=== PATIENT | female | born 1965 | race Caucasian/White ===

== ENCOUNTER 2022-01-18 13:21 | Emergency (ER) | payer MEDICARE ==
[2022-01-18] MEDS ORDERED: Sodium Chloride 0.9% 2.5 ML Syringe FLUSH PRN (13:53)
[2022-01-18] MEDS ORDERED: Sodium Chloride 0.9% 10 ML Syringe FLUSH PRN (13:53)
[2022-01-18] MEDS ORDERED: Ondansetron 4 MG/2 ML SDV IVPUSH ONE (13:53)
[2022-01-18] MEDS ORDERED: Sodium Chloride 0.9% 1,000 ML IV ONE (13:53)
[2022-01-18 15:11] LABS: BLOOD UREA NITROGEN,BUN 26 mg/dL (7.0-18.0); CARBON DIOXIDE,CO2 22.3 mmol/L (21.0-32.0); CHLORIDE,CL 100 mmol/L (98-107); GLUCOSE RANDOM 95 mg/dL (74-106); POTASSIUM,K 4.4 mmol/L (3.5-5.1); SODIUM,NA 134 mmol/L (136-145)
[2022-01-18 15:12] LABS: CORONAVIRUS COVID-19 NAA NEGATIVE (NEGATIVE); INFLUENZA A NAA NEGATIVE (NEGATIVE); INFLUENZA B NAA NEGATIVE (NEGATIVE)
[2022-01-18] MEDS ORDERED: oxyCODONE 5 MG Tab PO ONE (15:23)
== END 2022-01-18 16:20 | disposition home or self-care (01) ==
LOC: MW.ED 13:21
DX: M54.2 Cervicalgia (principal); R42 Dizziness and giddiness; I10 Essential (primary) hypertension; J32.0 Chronic maxillary sinusitis; J32.2 Chronic ethmoidal sinusitis; Z20.822 Contact with and (suspected) exposure to COVID-19; Z88.0 Allergy status to penicillin; Z88.5 Allergy status to narcotic agent; Z88.2 Allergy status to sulfonamides; W08.XXXA Fall from other furniture, initial encounter; Y93.84 Activity, sleeping; Y92.091 Bathroom in other non-institutional residence as the place of occurrence of the external cause
CPT/HCPCS: 0240U; 36415; 70450; 71045; 72125; 80053; 83735; 84484; 85025; 96374; 99284; A9270; J2405; J7030; 93010; 99285

== ENCOUNTER 2022-03-13 10:40 | Emergency (ER) | payer MEDICARE, MEDICAID ==
[2022-03-13] MEDS ORDERED: Sodium Chloride 0.9% 10 ML Syringe FLUSH PRN (11:16)
[2022-03-13] MEDS ORDERED: Sodium Chloride 0.9% 2.5 ML Syringe FLUSH PRN (11:16)
[2022-03-13] MEDS ORDERED: Sodium Chloride 0.9% 1,000 ML IV ONE (11:36)
[2022-03-13] MEDS ORDERED: Ketorolac 30 MG/ML SDV IVPUSH ONE (11:36)
[2022-03-13] MEDS ORDERED: HYDROmorphone 1 MG/ML Syringe IVPUSH ONE (11:36)
[2022-03-13] MEDS ORDERED: Ondansetron 4 MG/2 ML SDV IVPUSH ONE (11:36)
[2022-03-13 13:16] LABS: BLOOD UREA NITROGEN,BUN 10 mg/dL (7.0-18.0); CARBON DIOXIDE,CO2 20.8 mmol/L (21.0-32.0); CHLORIDE,CL 106 mmol/L (98-107); GLUCOSE RANDOM 93 mg/dL (74-106); LIPASE 131 U/L (73-393); SODIUM,NA 139 mmol/L (136-145)
[2022-03-13] MEDS ORDERED: Iopamidol 755 MG/ML 500 ML Multipack Bottle IVPUSH STA (14:48)
== END 2022-03-13 16:13 | disposition home or self-care (01) ==
LOC: MW.ED 10:40
DX: R10.9 Unspecified abdominal pain (principal); J44.9 Chronic obstructive pulmonary disease, unspecified; E03.9 Hypothyroidism, unspecified; I10 Essential (primary) hypertension; Z87.891 Personal history of nicotine dependence; Z86.16 Personal history of COVID-19; Z86.73 Personal history of transient ischemic attack (TIA), and cerebral infarction without residual deficits; Z79.899 Other long term (current) drug therapy; Z88.5 Allergy status to narcotic agent; Z88.0 Allergy status to penicillin; Z88.2 Allergy status to sulfonamides; Z88.6 Allergy status to analgesic agent
CPT/HCPCS: 36415; 74176; 80053; 81003; 83690; 85025; 96374; 96375; 99284; J1170; J1885; J2405; J3490; J7030; 74177

== ENCOUNTER 2022-04-10 22:27 | Emergency (ER) | payer MEDICARE, MEDICAID, OTHER ==
[2022-04-10] MEDS ORDERED: diphenhydrAMINE 50 MG/ML SDV IVPUSH ONE (22:59)
[2022-04-10 23:22] LABS: CARBON DIOXIDE,CO2 31.8 mmol/L (21.0-32.0); POTASSIUM,K 3.1 mmol/L (3.5-5.1)
[2022-04-10] MEDS ORDERED: Potassium Chloride 10% 20 MEQ/15 ML Soln 30 ML UD Cup PO ONE (23:24)
== END 2022-04-11 01:40 | disposition home or self-care (01) ==
LOC: MW.ED 22:27
DX: G24.9 Dystonia, unspecified (principal); I10 Essential (primary) hypertension; J44.9 Chronic obstructive pulmonary disease, unspecified; F31.9 Bipolar disorder, unspecified; E03.9 Hypothyroidism, unspecified; Z86.73 Personal history of transient ischemic attack (TIA), and cerebral infarction without residual deficits; Z79.899 Other long term (current) drug therapy
CPT/HCPCS: 36415; 71045; 80048; 83735; 84484; 85025; 93005; 96374; 99285; A9270; J1200; 93010; 99284

== ENCOUNTER 2022-04-23 10:21 | Day surgery (SDC) | payer MEDICARE, MEDICAID ==
[~2022-04-23 10:21] MED LIST: Lactated Ringers 1,000 ML IV SCH
[2022-04-23] MEDS ORDERED: Ondansetron 4 MG/2 ML SDV ONE (11:17)
[2022-04-23] MEDS ORDERED: fentaNYL 100 MCG/2 ML SDV ONE (11:17)
[2022-04-23] MEDS ORDERED: Propofol 200 MG/20 ML SDV ONE ×2 (11:17→12:25)
[2022-04-23] MEDS ORDERED: Lidocaine 2% 5 ML SDV ONE (11:18)
[2022-04-23] MEDS ORDERED: Glycopyrrolate 0.2 MG/ML SDV ONE (11:40)
[2022-04-23] MEDS ORDERED: Albuterol 8 GM Inhaler ONE (13:16)
== END 2022-04-23 13:15 | disposition home or self-care (01) ==
LOC: MW.SDS 10:21
PROVIDERS: ATTEND Surgery
DX: D12.6 Benign neoplasm of colon, unspecified (principal); K29.70 Gastritis, unspecified, without bleeding; K64.8 Other hemorrhoids; J44.9 Chronic obstructive pulmonary disease, unspecified; G47.30 Sleep apnea, unspecified; F41.9 Anxiety disorder, unspecified; E03.9 Hypothyroidism, unspecified; F32.A Depression, unspecified; I10 Essential (primary) hypertension; Z88.5 Allergy status to narcotic agent; Z88.8 Allergy status to other drugs, medicaments and biological substances; Z86.73 Personal history of transient ischemic attack (TIA), and cerebral infarction without residual deficits; Z88.0 Allergy status to penicillin; Z88.2 Allergy status to sulfonamides; Z79.899 Other long term (current) drug therapy; Z90.49 Acquired absence of other specified parts of digestive tract; Z98.890 Other specified postprocedural states; Z87.891 Personal history of nicotine dependence; Z79.890 Hormone replacement therapy; Z98.84 Bariatric surgery status
CPT/HCPCS: 43239; 45385; A9270; J2405; J2704; J3010; J3490; J7120; 00813

== ENCOUNTER 2022-06-19 14:41 | Emergency (ER) | payer MEDICARE, MEDICAID, OTHER ==
[2022-06-19] MEDS ORDERED: Sodium Chloride 0.9% 1,000 ML IV ONE (15:24)
[2022-06-19] MEDS ORDERED: Ondansetron 4 MG/2 ML SDV IVPUSH ONE (15:24)
[2022-06-19] MEDS ORDERED: Sodium Chloride 0.9% 2.5 ML Syringe FLUSH PRN (15:24)
[2022-06-19] MEDS ORDERED: Sodium Chloride 0.9% 10 ML Syringe FLUSH PRN (15:24)
[2022-06-19] MEDS ORDERED: Naloxone 0.4 MG/ML SDV IVPUSH ONE ×2 (15:25→18:48)
[2022-06-19 16:22] LABS: POTASSIUM,K 3.2 mmol/L (3.5-5.1)
[2022-06-19] MEDS ORDERED: Albuterol/Ipratropium 3.0-0.5 MG/3 ML Neb Soln NEB ONE (18:47)
[2022-06-19] MEDS ORDERED: Azithromycin 250 MG Tab PO ONE (18:49)
[2022-06-19] MEDS ORDERED: predniSONE 10 MG Tab PO ONE (18:50)
== END 2022-06-19 21:23 | disposition home or self-care (01) ==
LOC: MW.ED 14:41
DX: T40.2X1A Poisoning by other opioids, accidental (unintentional), initial encounter (principal); F10.129 Alcohol abuse with intoxication, unspecified; F11.90 Opioid use, unspecified, uncomplicated; R41.82 Altered mental status, unspecified; J44.9 Chronic obstructive pulmonary disease, unspecified; I10 Essential (primary) hypertension; E03.9 Hypothyroidism, unspecified; Z86.73 Personal history of transient ischemic attack (TIA), and cerebral infarction without residual deficits; Z79.899 Other long term (current) drug therapy
CPT/HCPCS: 36415; 71045; 80053; 80305; 80307; 81003; 83735; 84484; 85025; 93005; 96361; 96374; 96375; 96376; 99283; A9270; J2310; J2405; J3490; J7030; U0002; 93010; 99284; J7620-GY

== ENCOUNTER 2022-11-30 12:44 | Emergency (ER) | payer MEDICARE, MEDICAID ==
[2022-11-30] MEDS ORDERED: LORazepam 1 MG Tab PO ONE (13:21)
[2022-11-30 14:04] LABS: CARBON DIOXIDE,CO2 31.2 mmol/L (21.0-32.0); POTASSIUM,K 2.9 mmol/L (3.5-5.1)
[2022-11-30] MEDS ORDERED: Potassium Chloride 20 MEQ Packet PO ONE (14:10)
[2022-11-30] MEDS ORDERED: Potassium Chloride 20 MEQ Tab.ER PO ONE (14:18)
== END 2022-11-30 17:00 | disposition home or self-care (01) ==
LOC: MW.ED 12:44
DX: R07.89 Other chest pain (principal); R20.2 Paresthesia of skin; F41.9 Anxiety disorder, unspecified; E87.6 Hypokalemia; I10 Essential (primary) hypertension; J44.9 Chronic obstructive pulmonary disease, unspecified; K21.9 Gastro-esophageal reflux disease without esophagitis; Z79.899 Other long term (current) drug therapy
CPT/HCPCS: 36415; 71045; 80053; 84484; 85025; 93005; 99285; A9270; 93010; 99283

== ENCOUNTER 2023-03-03 14:13 | Emergency (ER) | payer MEDICARE, MEDICAID ==
[2023-03-03] MEDS ORDERED: Sodium Chloride 0.9% 10 ML Syringe FLUSH PRN (14:22)
[2023-03-03] MEDS ORDERED: Sodium Chloride 0.9% 2.5 ML Syringe FLUSH PRN (14:22)
[2023-03-03] MEDS ORDERED: Albuterol/Ipratropium 3.0-0.5 MG/3 ML Neb Soln NEB STA (14:23)
[2023-03-03] MEDS ORDERED: methylPREDNISolone Sodium Succinate 125 MG/2 ML SDV IVPUSH STA (14:38)
[2023-03-03] MEDS ORDERED: LORazepam 2 MG/ML SDV IVPUSH STA ×2 (14:38→21:52)
[2023-03-03] MEDS: Levofloxacin 500 MG Tab PO STA ×2 (15:20→16:08)
[2023-03-03 15:21] LABS: CORONAVIRUS COVID-19 NAA NEGATIVE (NEGATIVE); INFLUENZA A NAA NEGATIVE (NEGATIVE); INFLUENZA B NAA NEGATIVE (NEGATIVE)
[2023-03-03] MEDS ORDERED: Ondansetron 4 MG/2 ML SDV IVPUSH STA (15:22)
[2023-03-03 15:25] LABS: BASOPHILS PERCENT AUTO 0.3 % (0.0-1.5); EOSINOPHILS ABSOLUTE AUTO 0.4 K/uL (0.0-0.7); EOSINOPHILS PERCENT AUTO 2.9 % (0.0-7.0); HEMATOCRIT 44.1 % (36.0-46.0); HEMOGLOBIN 14.9 g/dL (12.0-16.0); LYMPHOCYTES ABSOLUTE AUTO 3.7 K/uL (0.6-2.4); LYMPHOCYTES PERCENT AUTO 26.7 % (16.0-40.0); MEAN CORPUSCULAR HEMOGLOBIN 31.7 pg (27.0-32.0); MEAN CORPUSCULAR HGB CONC 33.8 g/dL (31.0-37.0); MEAN CORPUSCULAR VOLUME 93.8 fL (80.0-98.0); MONOCYTES ABSOLUTE AUTO 1.3 K/uL (0.0-0.8); MONOCYTES PERCENT AUTO 9.3 % (0.0-15.0); NEUTROPHILS ABSOLUTE AUTO 8.3 K/uL (1.4-5.7); NEUTROPHILS PERCENT AUTO 60.8 % (48.0-80.0); PLATELET COUNT,PLT 282 K/uL (150-400); WHITE BLOOD CELL COUNT,WBC 13.73 K/uL (4.0-11.0)
[2023-03-03] MEDS ORDERED: Levofloxacin/Dextrose 5%-Water 500 MG in Premix Bag 1 BAG IV STA (15:43)
[2023-03-03 15:50] LABS: A/G RATIO 0.5 (0.9-1.6); ALBUMIN 2.5 g/dL (3.4-5.0); BILIRUBIN TOTAL 0.7 mg/dL (0.2-1.0); CALCIUM 8.9 mg/dL (8.5-10.1); CARBON DIOXIDE,CO2 30.3 mmol/L (21.0-32.0); CREATININE 0.9 mg/dL (0.6-1.0); EST CRCL DRUG DOSING (CG) 62.8 mL/min; POTASSIUM,K 2.6 mmol/L (3.5-5.1); PROTEIN TOTAL,TP 7.2 g/dL (6.4-8.2)
[2023-03-03 15:55] LABS: COLOR,URINE YELLOW; GLUCOSE,URINE NEGATIVE (NEGATIVE); KETONES,URINE TRACE mg/dL (NEGATIVE); LEUKOCYTE ESTERASE,URINE TRACE (NEGATIVE); NITRITE,URINE NEGATIVE (NEGATIVE); OCCULT BLOOD,URINE TRACE-INTACT (NEGATIVE); PROTEIN,URINE TRACE mg/dL (NEGATIVE); UROBILINOGEN,URINE 0.2 EU/dL (<2.0)
[2023-03-03] MEDS ORDERED: Sodium Chloride 0.9% 500 ML IV ONE (16:15)
[2023-03-03 16:31] LABS: APPEARANCE,URINE HAZY; BILIRUBIN,URINE SMALL (NEGATIVE)
[2023-03-03 16:32] LABS: BACTERIA,URINE FEW (NEGATIVE); CALCIUM OXALATE CRYSTALS,URINE RARE (NEGATIVE); EPITHELIAL CELLS,URINE MODERATE (NONE-FEW); RBC,URINE 0-2 (0-2/HPF); WBC,URINE 0-3 (0-5/HPF)
[2023-03-03 16:33] LABS: MUCUS,URINE HEAVY (NONE-MOD)
[2023-03-03] MEDS ORDERED: Sodium Chloride 0.9% 1,000 ML IV STA (16:33)
[2023-03-03] MEDS: Potassium Chloride 100 ML IV SCH ×2 (16:33→19:00)
[2023-03-03] MEDS ORDERED: Iopamidol 755 MG/ML 500 ML Multipack Bottle IVPUSH ONE (16:37)
== END 2023-03-03 23:55 | disposition critical access hospital (66) ==
LOC: MW.ED 14:13
DX: J18.9 Pneumonia, unspecified organism (principal); J44.9 Chronic obstructive pulmonary disease, unspecified; E87.6 Hypokalemia; I10 Essential (primary) hypertension; K21.9 Gastro-esophageal reflux disease without esophagitis; E03.9 Hypothyroidism, unspecified; Z86.73 Personal history of transient ischemic attack (TIA), and cerebral infarction without residual deficits; Z88.5 Allergy status to narcotic agent; Z88.0 Allergy status to penicillin; Z88.2 Allergy status to sulfonamides; Z88.8 Allergy status to other drugs, medicaments and biological substances; Z79.899 Other long term (current) drug therapy; Z87.891 Personal history of nicotine dependence; Z20.822 Contact with and (suspected) exposure to COVID-19; Z98.84 Bariatric surgery status
CPT/HCPCS: 0240U; 36415; 71045; 74177; 80053; 81001; 83605; 83735; 84484; 85025; 87040; 87086; 87899; 93005; 96365; 96368; 96375; 99285; J1956; J2060; J2405; J2930; J3480; J3490; J7040; Q9967; 87070; 87205; 93010; A9270-GY; J7620-GY

== ENCOUNTER 2023-08-08 13:48 | Inpatient (IN) | payer MEDICAID, MEDICARE ==
[2023-08-08] MEDS ORDERED: HYDROmorphone 1 MG/ML Syringe IVPUSH ONE (14:29)
[2023-08-08] MEDS ORDERED: Albuterol/Ipratropium 3.0-0.5 MG/3 ML Neb Soln NEB ONE (14:29)
[2023-08-08] MEDS ORDERED: Furosemide 40 MG/4 ML VIAL IVPUSH ONE (14:30)
[2023-08-08 15:14] LABS: PCO2 VENOUS 55 mmHG (41-51); PH,VENOUS 7.31 (7.31-7.41); PO2 VENOUS < 30 mmHG
[2023-08-08 15:15] LABS: BASE EXCESS VENOUS 0.6 (-2.0-3.0); BICARBONATE,VENOUS 28 mEq/L (23-28)
[2023-08-08 15:26] LABS: BASOPHILS PERCENT AUTO 0.5 % (0.0-1.0); EOSINOPHILS PERCENT AUTO 11.5 % (0.0-6.0); HEMOGLOBIN 12.8 g/dL (12.0-16.0); IMMATURE GRAN PERCENT AUTO 0.2 % (0.0-0.4); LYMPHOCYTES PERCENT AUTO 28.2 % (24.0-44.0); MEAN CORPUSCULAR HEMOGLOBIN 29.6 pg (28.0-32.0); MEAN CORPUSCULAR HGB CONC 33.7 g/dL (32.0-36.0); MEAN PLATELET VOLUME 10.5 fL (9.4-12.3); MONOCYTES PERCENT AUTO 10.8 % (0.0-8.0); NEUTROPHILS PERCENT AUTO 48.8 % (41.0-71.0); PLATELET COUNT,PLT 217 K/uL (150-400); RED BLOOD CELL COUNT 4.32 M/uL (4.10-5.30); WHITE BLOOD CELL COUNT,WBC 5.46 K/uL (3.9-11.3)
[2023-08-08 15:27] LABS: BASOPHILS ABSOLUTE AUTO 0.03 K/uL (0.00-0.20); EOSINOPHILS ABSOLUTE AUTO 0.63 K/uL (0.00-0.45); IMMATURE GRAN ABSOLUTE AUTO 0.01 K/uL (0.00-0.05); LYMPHOCYTES ABSOLUTE AUTO 1.54 K/uL (1.00-4.80); MONOCYTES ABSOLUTE AUTO 0.59 K/uL (0.00-0.80); NEUTROPHILS ABSOLUTE AUTO 2.66 K/uL (1.80-7.70)
[2023-08-08 15:32] LABS: HEMOGLOBIN A1C 6.1 %
[2023-08-08 15:43] LABS: A/G RATIO 0.7 (0.9-1.6); ALBUMIN 2.8 g/dL (3.4-5.0); BILIRUBIN TOTAL 0.6 mg/dL (0.2-1.0); CALCIUM 8.5 mg/dL (8.5-10.1); CREATININE 1.1 mg/dL (0.6-1.0); EST CRCL DRUG DOSING (CG) 51.39 mL/min; PROTEIN TOTAL,TP 6.8 g/dL (6.4-8.2)
[2023-08-08] MEDS ORDERED: diphenhydrAMINE 50 MG/ML SDV IVPUSH ONE (15:45)
[2023-08-08] MEDS ORDERED: methylPREDNISolone Sodium Succinate 125 MG/2 ML SDV IVPUSH ONE (16:05)
[2023-08-08] MEDS ORDERED: Azithromycin 500 MG in Sodium Chloride 0.9% 250 ML IV ONE (16:24)
[2023-08-08] MEDS ORDERED: cefTRIAXone 1 GM in Sodium Chloride 0.9% 50 ML IV ONE (16:24)
[2023-08-08] MEDS ORDERED: Albuterol/Ipratropium 3.0-0.5 MG/3 ML Neb Soln NEB PRN (17:06)
[2023-08-08] MEDS ORDERED: Ondansetron 4 MG/2 ML SDV IVPUSH PRN (17:06)
[2023-08-08] MEDS: Albuterol/Ipratropium 3.0-0.5 MG/3 ML Neb Soln NEB SCH ×2 (19:00→21:51)
[2023-08-08] MEDS: Pantoprazole 40 MG in Sodium Chloride 0.9% 10 ML IVPUSH SCH (20:46)
[2023-08-08] MEDS: Enoxaparin 40 MG/0.4 ML Syringe SUBCUT SCH (20:47)
[2023-08-08] MEDS: Acetaminophen/oxyCODONE 325-5 MG Tab PO PRN (20:48)
[2023-08-08] MEDS: DOXEPIN 75 MG PO SCH (21:50)
[2023-08-08 22:32] LABS: APPEARANCE,URINE CLEAR; BILIRUBIN,URINE NEGATIVE (NEGATIVE); COLOR,URINE YELLOW; GLUCOSE,URINE NEGATIVE (NEGATIVE); KETONES,URINE NEGATIVE (NEGATIVE); LEUKOCYTE ESTERASE,URINE NEGATIVE (NEGATIVE); NITRITE,URINE NEGATIVE (NEGATIVE); OCCULT BLOOD,URINE NEGATIVE (NEGATIVE); PH,URINE 6.5 (5.0-8.0); PROTEIN,URINE NEGATIVE (NEGATIVE); UROBILINOGEN,URINE 0.2 EU/dL (<2.0)
[2023-08-09 06:17] LABS: HEMATOCRIT 40.1 % (37.0-47.0); HEMOGLOBIN 13.7 g/dL (12.0-16.0); IMMATURE GRAN ABSOLUTE AUTO 0.01 K/uL (0.00-0.05); IMMATURE GRAN PERCENT AUTO 0.2 % (0.0-0.4); LYMPHOCYTES ABSOLUTE AUTO 1.23 K/uL (1.00-4.80); LYMPHOCYTES PERCENT AUTO 21.1 % (24.0-44.0); MEAN CORPUSCULAR HEMOGLOBIN 29.8 pg (28.0-32.0); MEAN CORPUSCULAR HGB CONC 34.2 g/dL (32.0-36.0); MEAN CORPUSCULAR VOLUME 87.4 fL (83.0-99.0); MEAN PLATELET VOLUME 10.5 fL (9.4-12.3); MONOCYTES PERCENT AUTO 1.7 % (0.0-8.0); NEUTROPHILS ABSOLUTE AUTO 4.48 K/uL (1.80-7.70); PLATELET COUNT,PLT 232 K/uL (150-400); RED BLOOD CELL COUNT 4.59 M/uL (4.10-5.30); WHITE BLOOD CELL COUNT,WBC 5.82 K/uL (3.9-11.3)
[2023-08-09] MEDS: Levothyroxine 50 MCG Tab PO SCH (06:38)
[2023-08-09] MEDS: Omeprazole 20 MG Cap.CR PO SCH (06:38)
[2023-08-09 07:09] LABS: A/G RATIO 0.6 (0.9-1.6); ALBUMIN 2.9 g/dL (3.4-5.0); BILIRUBIN TOTAL 0.3 mg/dL (0.2-1.0); CALCIUM 8.8 mg/dL (8.5-10.1); CARBON DIOXIDE,CO2 23.3 mmol/L (21.0-32.0); CREATININE 1.1 mg/dL (0.6-1.0); EST CRCL DRUG DOSING (CG) 51.39 mL/min; POTASSIUM,K 3.4 mmol/L (3.5-5.1); PROTEIN TOTAL,TP 7.5 g/dL (6.4-8.2)
[2023-08-09] MEDS: Losartan 50 MG Tab PO SCH (09:30)
[2023-08-09] MEDS: Pantoprazole 40 MG in Sodium Chloride 0.9% 10 ML IVPUSH SCH ×2 (09:30→20:41)
[2023-08-09] MEDS ORDERED: Potassium Chloride 20 MEQ Tab.ER PO ONE (09:30)
[2023-08-09] MEDS: Furosemide 20 MG/2 ML VIAL IVPUSH SCH (09:30)
[2023-08-09] MEDS: Topiramate 50 MG Tab PO SCH (10:50)
[2023-08-09] MEDS: methylPREDNISolone Sodium Succinate 40 MG/1 ML SDV IVPUSH SCH ×2 (10:50→21:08)
[2023-08-09] MEDS: Acetaminophen/oxyCODONE 325-5 MG Tab PO PRN ×3 (10:51→23:14)
[2023-08-09] MEDS: FORMOTEROL INH SCH ×2 (10:53→20:37)
[2023-08-09] MEDS: BUDESONIDE INH SCH ×2 (10:53→20:37)
[2023-08-09] MEDS ORDERED: cefTRIAXone 1 GM in Sodium Chloride 0.9% 50 ML IV SCH (16:00)
[2023-08-09] MEDS ORDERED: Potassium Chloride 10% 20 MEQ/15 ML Soln 15 ML UD Cup PO ONE (17:58)
[2023-08-09] MEDS ORDERED: Azithromycin 500 MG in Sodium Chloride 0.9% 250 ML IV SCH (18:00)
[2023-08-09] MEDS: Enoxaparin 40 MG/0.4 ML Syringe SUBCUT SCH (20:41)
[2023-08-09] MEDS: DOXEPIN 75 MG PO SCH (20:42)
[2023-08-10 05:50] LABS: BASOPHILS ABSOLUTE AUTO 0.01 K/uL (0.00-0.20); BASOPHILS PERCENT AUTO 0.1 % (0.0-1.0); EOSINOPHILS ABSOLUTE AUTO 0.01 K/uL (0.00-0.45); EOSINOPHILS PERCENT AUTO 0.1 % (0.0-6.0); HEMATOCRIT 41.7 % (37.0-47.0); HEMOGLOBIN 13.8 g/dL (12.0-16.0); IMMATURE GRAN ABSOLUTE AUTO 0.04 K/uL (0.00-0.05); IMMATURE GRAN PERCENT AUTO 0.3 % (0.0-0.4); LYMPHOCYTES PERCENT AUTO 22.3 % (24.0-44.0); MEAN CORPUSCULAR HEMOGLOBIN 29.5 pg (28.0-32.0); MEAN CORPUSCULAR HGB CONC 33.1 g/dL (32.0-36.0); MEAN CORPUSCULAR VOLUME 89.1 fL (83.0-99.0); MEAN PLATELET VOLUME 10.7 fL (9.4-12.3); MONOCYTES ABSOLUTE AUTO 0.96 K/uL (0.00-0.80); MONOCYTES PERCENT AUTO 7.6 % (0.0-8.0); NEUTROPHILS ABSOLUTE AUTO 8.74 K/uL (1.80-7.70); NEUTROPHILS PERCENT AUTO 69.6 % (41.0-71.0); PLATELET COUNT,PLT 259 K/uL (150-400); RED BLOOD CELL COUNT 4.68 M/uL (4.10-5.30); WHITE BLOOD CELL COUNT,WBC 12.56 K/uL (3.9-11.3)
[2023-08-10 06:28] LABS: A/G RATIO 0.7 (0.9-1.6); ALBUMIN 2.8 g/dL (3.4-5.0); BILIRUBIN TOTAL 0.3 mg/dL (0.2-1.0); CALCIUM 8.6 mg/dL (8.5-10.1); CARBON DIOXIDE,CO2 23.7 mmol/L (21.0-32.0); CREATININE 0.8 mg/dL (0.6-1.0); EST CRCL DRUG DOSING (CG) 70.66 mL/min; POTASSIUM,K 4.1 mmol/L (3.5-5.1)
[2023-08-10] MEDS: Acetaminophen/oxyCODONE 325-5 MG Tab PO PRN (06:37)
[2023-08-10] MEDS: Levothyroxine 50 MCG Tab PO SCH (06:37)
[2023-08-10] MEDS: Omeprazole 20 MG Cap.CR PO SCH (06:37)
[2023-08-10] MEDS: Pantoprazole 40 MG in Sodium Chloride 0.9% 10 ML IVPUSH SCH (08:17)
[2023-08-10] MEDS: Losartan 50 MG Tab PO SCH (08:18)
[2023-08-10] MEDS: Furosemide 20 MG/2 ML VIAL IVPUSH SCH (08:18)
[2023-08-10] MEDS: Topiramate 50 MG Tab PO SCH (08:18)
[2023-08-10] MEDS ORDERED: Formoterol/Mometasone 200-5 MCG 8.8 GM Inhaler INH SCH (09:00)
[2023-08-10] MEDS: methylPREDNISolone Sodium Succinate 40 MG/1 ML SDV IVPUSH SCH (09:50)
[2023-08-10] MEDS ORDERED: Meclizine 25 MG Tab PO ONE (10:09)
== END 2023-08-10 13:00 | disposition home or self-care (01) | DRG 189 ==
LOC: MW.ED 13:48 → MW.MS 16:24
PROVIDERS: ADMIT Family Medicine; ATTEND Family Medicine
DX: J96.01 Acute respiratory failure with hypoxia (principal); J44.1 Chronic obstructive pulmonary disease with (acute) exacerbation; F10.11 Alcohol abuse, in remission; F11.90 Opioid use, unspecified, uncomplicated; R06.02 Shortness of breath; G47.30 Sleep apnea, unspecified; K59.09 Other constipation; E87.70 Fluid overload, unspecified; M19.90 Unspecified osteoarthritis, unspecified site; F41.9 Anxiety disorder, unspecified; F32.A Depression, unspecified; J44.9 Chronic obstructive pulmonary disease, unspecified; M54.9 Dorsalgia, unspecified; Z88.8 Allergy status to other drugs, medicaments and biological substances; Z88.5 Allergy status to narcotic agent; Z88.0 Allergy status to penicillin; Z88.2 Allergy status to sulfonamides; I10 Essential (primary) hypertension; Z87.442 Personal history of urinary calculi; E03.9 Hypothyroidism, unspecified; Z98.49 Cataract extraction status, unspecified eye; Z98.1 Arthrodesis status; Z90.49 Acquired absence of other specified parts of digestive tract; Z98.84 Bariatric surgery status; Z98.890 Other specified postprocedural states; K21.9 Gastro-esophageal reflux disease without esophagitis; F31.9 Bipolar disorder, unspecified; F12.10 Cannabis abuse, uncomplicated; Z99.81 Dependence on supplemental oxygen; Z79.899 Other long term (current) drug therapy; Z86.73 Personal history of transient ischemic attack (TIA), and cerebral infarction without residual deficits; Z87.891 Personal history of nicotine dependence
CPT/HCPCS: 36415; 71045; 80053; 82803; 83036; 83735; 83880; 84484; 85025; 93005; 96374; 96375; 99285; J1170; J1200; J1940; J2930; 81003; 93010; 93306; 97161-GP; A9270-GY; C9113; J0456; J0696; J1650; J2920; J3490; J7050; J7620-GY

== ENCOUNTER 2023-09-04 09:23 | Emergency (ER) | payer MEDICARE ==
[2023-09-04] MEDS ORDERED: Albuterol/Ipratropium 3.0-0.5 MG/3 ML Neb Soln NEB ONE (09:43)
[2023-09-04] MEDS ORDERED: methylPREDNISolone Sodium Succinate 125 MG/2 ML SDV IVPUSH ONE (09:43)
[2023-09-04 10:03] LABS: BASE EXCESS VENOUS -2.5 (-2.0-3.0); PH,VENOUS 7.36 (7.31-7.41)
[2023-09-04 10:04] LABS: BASOPHILS ABSOLUTE AUTO 0.02 K/uL (0.00-0.20); BASOPHILS PERCENT AUTO 0.4 % (0.0-1.0); EOSINOPHILS ABSOLUTE AUTO 0.33 K/uL (0.00-0.45); EOSINOPHILS PERCENT AUTO 6.4 % (0.0-6.0); HEMOGLOBIN 15.8 g/dL (12.0-16.0); IMMATURE GRAN ABSOLUTE AUTO 0.01 K/uL (0.00-0.05); IMMATURE GRAN PERCENT AUTO 0.2 % (0.0-0.4); LYMPHOCYTES ABSOLUTE AUTO 2.73 K/uL (1.00-4.80); LYMPHOCYTES PERCENT AUTO 52.9 % (24.0-44.0); MEAN CORPUSCULAR HEMOGLOBIN 30.1 pg (28.0-32.0); MEAN CORPUSCULAR HGB CONC 34.3 g/dL (32.0-36.0); MEAN CORPUSCULAR VOLUME 87.6 fL (83.0-99.0); MEAN PLATELET VOLUME 10.9 fL (9.4-12.3); MONOCYTES ABSOLUTE AUTO 0.61 K/uL (0.00-0.80); MONOCYTES PERCENT AUTO 11.8 % (0.0-8.0); NEUTROPHILS ABSOLUTE AUTO 1.46 K/uL (1.80-7.70); NEUTROPHILS PERCENT AUTO 28.3 % (41.0-71.0); PLATELET COUNT,PLT 230 K/uL (150-400); RED BLOOD CELL COUNT 5.25 M/uL (4.10-5.30); WHITE BLOOD CELL COUNT,WBC 5.16 K/uL (3.9-11.3)
[2023-09-04 10:32] LABS: A/G RATIO 0.7 (0.9-1.6); ALBUMIN 3.2 g/dL (3.4-5.0); BILIRUBIN TOTAL 0.5 mg/dL (0.2-1.0); C-REACTIVE PROTEIN 1.25 mg/dL (<0.3); CALCIUM 8.9 mg/dL (8.5-10.1); CARBON DIOXIDE,CO2 23.9 mmol/L (21.0-32.0); EST CRCL DRUG DOSING (CG) 54.24 mL/min; MAGNESIUM 1.9 mg/dL (1.8-2.4); POTASSIUM,K 4.3 mmol/L (3.5-5.1); PROTEIN TOTAL,TP 7.7 g/dL (6.4-8.2)
[2023-09-04 10:42] LABS: CORONAVIRUS COVID-19 NAA NEGATIVE (NEGATIVE); INFLUENZA A NAA NEGATIVE (NEGATIVE); INFLUENZA B NAA NEGATIVE (NEGATIVE)
== END 2023-09-04 11:59 | disposition home or self-care (01) ==
LOC: MW.ED 09:23
DX: J44.1 Chronic obstructive pulmonary disease with (acute) exacerbation (principal); I10 Essential (primary) hypertension; K21.9 Gastro-esophageal reflux disease without esophagitis; E03.9 Hypothyroidism, unspecified; Z88.5 Allergy status to narcotic agent; Z88.0 Allergy status to penicillin; Z88.2 Allergy status to sulfonamides; Z88.8 Allergy status to other drugs, medicaments and biological substances; Z79.899 Other long term (current) drug therapy; Z20.822 Contact with and (suspected) exposure to COVID-19
CPT/HCPCS: 0240U; 36415; 71045; 80053; 82803; 83735; 83880; 84484; 85025; 86140; 93005; 96374; 99285; J2930; 93010; 99284; J7620-GY

== ENCOUNTER 2023-11-09 18:10 | Inpatient (IN) | payer MEDICARE, MEDICAID ==
[2023-11-09] MEDS ORDERED: Albuterol/Ipratropium 3.0-0.5 MG/3 ML Neb Soln NEB ONE (18:21)
[2023-11-09] MEDS ORDERED: methylPREDNISolone Sodium Succinate 125 MG/2 ML SDV IVPUSH ONE (18:21)
[2023-11-09 18:45] LABS: BASE EXCESS VENOUS -2.1 (-2.0-3.0); PH,VENOUS 7.38 (7.31-7.41)
[2023-11-09 18:55] LABS: BASOPHILS ABSOLUTE AUTO 0.03 K/uL (0.00-0.20); BASOPHILS PERCENT AUTO 0.3 % (0.0-1.0); EOSINOPHILS ABSOLUTE AUTO 0.27 K/uL (0.00-0.45); EOSINOPHILS PERCENT AUTO 2.9 % (0.0-6.0); HEMATOCRIT 42.7 % (37.0-47.0); HEMOGLOBIN 14.6 g/dL (12.0-16.0); IMMATURE GRAN ABSOLUTE AUTO 0.02 K/uL (0.00-0.05); IMMATURE GRAN PERCENT AUTO 0.2 % (0.0-0.4); LYMPHOCYTES PERCENT AUTO 26.4 % (24.0-44.0); MEAN CORPUSCULAR HEMOGLOBIN 30.4 pg (28.0-32.0); MEAN CORPUSCULAR HGB CONC 34.2 g/dL (32.0-36.0); MONOCYTES ABSOLUTE AUTO 0.98 K/uL (0.00-0.80); MONOCYTES PERCENT AUTO 10.4 % (0.0-8.0); NEUTROPHILS ABSOLUTE AUTO 5.66 K/uL (1.80-7.70); NEUTROPHILS PERCENT AUTO 59.8 % (41.0-71.0); PLATELET COUNT,PLT 354 K/uL (150-400); WHITE BLOOD CELL COUNT,WBC 9.46 K/uL (3.9-11.3)
[2023-11-09 19:00] LABS: A/G RATIO 0.6 (0.9-1.6); ALBUMIN 2.8 g/dL (3.4-5.0); BILIRUBIN TOTAL 0.4 mg/dL (0.2-1.0); CREATININE 1.1 mg/dL (0.6-1.0); EST CRCL DRUG DOSING (CG) 51.39 mL/min; MAGNESIUM 1.9 mg/dL (1.8-2.4); POTASSIUM,K 3.6 mmol/L (3.5-5.1); PROTEIN TOTAL,TP 7.6 g/dL (6.4-8.2)
[2023-11-09 19:13] LABS: APPEARANCE,URINE CLEAR; BILIRUBIN,URINE NEGATIVE (NEGATIVE); COLOR,URINE YELLOW; GLUCOSE,URINE NEGATIVE (NEGATIVE); KETONES,URINE NEGATIVE (NEGATIVE); LEUKOCYTE ESTERASE,URINE NEGATIVE (NEGATIVE); NITRITE,URINE NEGATIVE (NEGATIVE); OCCULT BLOOD,URINE TRACE-INTACT (NEGATIVE); PROTEIN,URINE NEGATIVE (NEGATIVE); UROBILINOGEN,URINE 0.2 EU/dL (<2.0)
[2023-11-09 19:28] LABS: BACTERIA,URINE RARE (NEGATIVE); EPITHELIAL CELLS,URINE RARE (NONE-FEW); RBC,URINE 0-1 (0-2/HPF); WBC,URINE 0-1 (0-5/HPF)
[2023-11-09] MEDS ORDERED: Iopamidol 755 MG/ML 500 ML Multipack Bottle IVPUSH STA (19:33)
[2023-11-09 19:45] LABS: CORONAVIRUS COVID-19 NAA NEGATIVE (NEGATIVE); INFLUENZA A NAA NEGATIVE (NEGATIVE); INFLUENZA B NAA NEGATIVE (NEGATIVE); RESPIRATORY SYNCYTIAL VIR NAA NEGATIVE (NEGATIVE)
[2023-11-09] MEDS ORDERED: Sodium Chloride 0.9% 1,000 ML IV ONE (21:17)
[2023-11-09] MEDS ORDERED: Cefepime 2 GM in Sodium Chloride 0.9% 50 ML IV ONE (21:28)
[2023-11-09] MEDS ORDERED: Azithromycin 500 MG in Sodium Chloride 0.9% 250 ML IV ONE (21:31)
[2023-11-09] MEDS ORDERED: Ondansetron 4 MG/2 ML SDV IVPUSH PRN (22:09)
[2023-11-09] MEDS ORDERED: Acetaminophen 325 MG Tab PO PRN (22:09)
[2023-11-09] MEDS ORDERED: Polyethylene Glycol 3350 Powder 17 GM Packet PO PRN (22:09)
[2023-11-09] MEDS ORDERED: Albuterol/Ipratropium 3.0-0.5 MG/3 ML Neb Soln NEB PRN (22:09)
[2023-11-10] MEDS: Cefepime 2 GM in Sodium Chloride 0.9% 50 ML IV SCH ×4 (00:28→21:31)
[2023-11-10] MEDS ORDERED: Azithromycin 500 MG Vial ONE (00:40)
[2023-11-10] MEDS ORDERED: Sodium Chloride 0.9% 250 ML ONE (00:41)
[2023-11-10] MEDS: Albuterol/Ipratropium 3.0-0.5 MG/3 ML Neb Soln NEB SCH ×7 (00:51→21:32)
[2023-11-10 05:48] LABS: HEMATOCRIT 39.7 % (37.0-47.0); HEMOGLOBIN 13.4 g/dL (12.0-16.0); IMMATURE GRAN ABSOLUTE AUTO 0.01 K/uL (0.00-0.05); IMMATURE GRAN PERCENT AUTO 0.3 % (0.0-0.4); LYMPHOCYTES ABSOLUTE AUTO 1.19 K/uL (1.00-4.80); LYMPHOCYTES PERCENT AUTO 30.1 % (24.0-44.0); MEAN CORPUSCULAR HEMOGLOBIN 30.1 pg (28.0-32.0); MEAN CORPUSCULAR HGB CONC 33.8 g/dL (32.0-36.0); MEAN CORPUSCULAR VOLUME 89.2 fL (83.0-99.0); MEAN PLATELET VOLUME 10.6 fL (9.4-12.3); MONOCYTES PERCENT AUTO 2.5 % (0.0-8.0); NEUTROPHILS ABSOLUTE AUTO 2.66 K/uL (1.80-7.70); NEUTROPHILS PERCENT AUTO 67.1 % (41.0-71.0); PLATELET COUNT,PLT 268 K/uL (150-400); RED BLOOD CELL COUNT 4.45 M/uL (4.10-5.30); WHITE BLOOD CELL COUNT,WBC 3.96 K/uL (3.9-11.3)
[2023-11-10 06:27] LABS: ALBUMIN 2.4 g/dL (3.4-5.0); BILIRUBIN TOTAL 0.2 mg/dL (0.2-1.0); CALCIUM 8.5 mg/dL (8.5-10.1); CARBON DIOXIDE,CO2 24.5 mmol/L (21.0-32.0); CREATININE 0.9 mg/dL (0.6-1.0); EST CRCL DRUG DOSING (CG) 62.8 mL/min; MAGNESIUM 1.8 mg/dL (1.8-2.4); PHOSPHORUS 2.7 mg/dL (2.6-4.7); POTASSIUM,K 4.3 mmol/L (3.5-5.1); PROTEIN TOTAL,TP 6.8 g/dL (6.4-8.2)
[2023-11-10 06:32] LABS: A/G RATIO 0.6 (0.9-1.6)
[2023-11-10] MEDS ORDERED: Cyclobenzaprine 10 MG Tab PO PRN (07:31)
[2023-11-10] MEDS ORDERED: Sodium Chloride 0.9% Inhalation Soln 3 ML Neb INH ONE (08:34)
[2023-11-10] MEDS ORDERED: Codeine/guaiFENesin 10-100 MG/5 ML Syrup 5 ML Cup PO PRN (08:59)
[2023-11-10] MEDS ORDERED: Benzonatate 100 MG Cap PO PRN (08:59)
[2023-11-10] MEDS ORDERED: Non-Formulary Medication 1 Each (Budesonide/Formoterol [Symbicort 160-4.5 Mcg Inhaler (6 G INH SCH (09:00)
[2023-11-10] MEDS ORDERED: Furosemide 20 MG Tab PO SCH (09:00)
[2023-11-10] MEDS: Fluticasone NASAL Spray 16 GM Bottle NASBOTH SCH (09:33)
[2023-11-10] MEDS: busPIRone 15 MG Tab PO SCH ×2 (09:34→21:53)
[2023-11-10] MEDS: methylPREDNISolone Sodium Succinate 40 MG/1 ML SDV IVPUSH SCH ×2 (09:37→21:31)
[2023-11-10] MEDS: Azithromycin 500 MG in Sodium Chloride 0.9% 250 ML IV SCH (09:38)
[2023-11-10] MEDS: Enoxaparin 40 MG/0.4 ML Syringe SUBCUT SCH (09:38)
[2023-11-10] MEDS: Formoterol/Mometasone 200-5 MCG 8.8 GM Inhaler INH SCH ×2 (11:54→21:33)
[2023-11-10] MEDS ORDERED: guaiFENesin 100 MG/5 ML Soln 5 ML UD Cup PO PRN (12:00)
[2023-11-10] MEDS: Acetaminophen/oxyCODONE 325-5 MG Tab PO PRN ×2 (13:13→20:19)
[2023-11-10] MEDS: Sodium Chloride 0.9% Inhalation Soln 3 ML Neb INH SCH ×2 (13:15→21:29)
[2023-11-10] MEDS ORDERED: DOXEPIN HCL 150 MG PO SCH (21:00)
[2023-11-10] MEDS: valACYclovir 500 MG Tab PO SCH (21:30)
[2023-11-10] MEDS: Propranolol 10 MG Tab PO SCH (21:30)
[2023-11-10] MEDS: Montelukast 10 MG Tab PO SCH (21:31)
[2023-11-10] MEDS: Topiramate 50 MG Tab PO SCH (21:31)
[2023-11-11] MEDS: Albuterol/Ipratropium 3.0-0.5 MG/3 ML Neb Soln NEB SCH ×6 (02:13→22:04)
[2023-11-11] MEDS: Acetaminophen/oxyCODONE 325-5 MG Tab PO PRN ×3 (04:16→23:11)
[2023-11-11 05:36] LABS: BASOPHILS ABSOLUTE AUTO 0.01 K/uL (0.00-0.20); BASOPHILS PERCENT AUTO 0.1 % (0.0-1.0); HEMATOCRIT 38.4 % (37.0-47.0); HEMOGLOBIN 12.8 g/dL (12.0-16.0); IMMATURE GRAN ABSOLUTE AUTO 0.03 K/uL (0.00-0.05); IMMATURE GRAN PERCENT AUTO 0.3 % (0.0-0.4); LYMPHOCYTES ABSOLUTE AUTO 1.38 K/uL (1.00-4.80); LYMPHOCYTES PERCENT AUTO 12.8 % (24.0-44.0); MEAN CORPUSCULAR HEMOGLOBIN 29.9 pg (28.0-32.0); MEAN CORPUSCULAR HGB CONC 33.3 g/dL (32.0-36.0); MEAN CORPUSCULAR VOLUME 89.7 fL (83.0-99.0); MEAN PLATELET VOLUME 10.2 fL (9.4-12.3); MONOCYTES ABSOLUTE AUTO 0.33 K/uL (0.00-0.80); MONOCYTES PERCENT AUTO 3.1 % (0.0-8.0); NEUTROPHILS ABSOLUTE AUTO 9.03 K/uL (1.80-7.70); NEUTROPHILS PERCENT AUTO 83.7 % (41.0-71.0); PLATELET COUNT,PLT 329 K/uL (150-400); RED BLOOD CELL COUNT 4.28 M/uL (4.10-5.30); WHITE BLOOD CELL COUNT,WBC 10.78 K/uL (3.9-11.3)
[2023-11-11 05:54] LABS: CALCIUM 8.8 mg/dL (8.5-10.1); CARBON DIOXIDE,CO2 24.4 mmol/L (21.0-32.0); EST CRCL DRUG DOSING (CG) 56.53 mL/min; MAGNESIUM 1.8 mg/dL (1.8-2.4); POTASSIUM,K 4.3 mmol/L (3.5-5.1)
[2023-11-11] MEDS: Formoterol/Mometasone 200-5 MCG 8.8 GM Inhaler INH SCH ×2 (06:22→22:05)
[2023-11-11] MEDS: Sodium Chloride 0.9% Inhalation Soln 3 ML Neb INH SCH (06:23)
[2023-11-11] MEDS: Cefepime 2 GM in Sodium Chloride 0.9% 50 ML IV SCH ×3 (07:18→22:03)
[2023-11-11] MEDS: Levothyroxine 25 MCG Tab PO SCH (07:51)
[2023-11-11] MEDS: Enoxaparin 40 MG/0.4 ML Syringe SUBCUT SCH (09:04)
[2023-11-11] MEDS: Losartan 50 MG Tab PO SCH (09:04)
[2023-11-11] MEDS: methylPREDNISolone Sodium Succinate 40 MG/1 ML SDV IVPUSH SCH ×2 (09:04→22:02)
[2023-11-11] MEDS: Famotidine 20 MG Tab PO SCH (09:04)
[2023-11-11] MEDS: Azithromycin 500 MG in Sodium Chloride 0.9% 250 ML IV SCH (09:05)
[2023-11-11] MEDS: Fluticasone NASAL Spray 16 GM Bottle NASBOTH SCH (09:05)
[2023-11-11] MEDS ORDERED: Magnesium Hydroxide 400 MG/5 ML Susp 30 ML Cup PO PRN (10:07)
[2023-11-11] MEDS: busPIRone 15 MG Tab PO SCH ×2 (12:32→22:03)
[2023-11-11] MEDS: Codeine/guaiFENesin 10-100 MG/5 ML Syrup 5 ML Cup PO PRN ×2 (18:19→23:12)
[2023-11-11] MEDS: Topiramate 50 MG Tab PO SCH (22:02)
[2023-11-11] MEDS: Propranolol 10 MG Tab PO SCH (22:02)
[2023-11-11] MEDS: Montelukast 10 MG Tab PO SCH (22:02)
[2023-11-11] MEDS: valACYclovir 500 MG Tab PO SCH (22:03)
[2023-11-12] MEDS: Albuterol/Ipratropium 3.0-0.5 MG/3 ML Neb Soln NEB SCH ×4 (02:43→14:32)
[2023-11-12 06:14] LABS: BASOPHILS ABSOLUTE AUTO 0.01 K/uL (0.00-0.20); BASOPHILS PERCENT AUTO 0.1 % (0.0-1.0); HEMATOCRIT 39.4 % (37.0-47.0); HEMOGLOBIN 13.5 g/dL (12.0-16.0); IMMATURE GRAN ABSOLUTE AUTO 0.04 K/uL (0.00-0.05); IMMATURE GRAN PERCENT AUTO 0.5 % (0.0-0.4); LYMPHOCYTES ABSOLUTE AUTO 1.44 K/uL (1.00-4.80); LYMPHOCYTES PERCENT AUTO 17.3 % (24.0-44.0); MEAN CORPUSCULAR HEMOGLOBIN 30.2 pg (28.0-32.0); MEAN CORPUSCULAR HGB CONC 34.3 g/dL (32.0-36.0); MEAN CORPUSCULAR VOLUME 88.1 fL (83.0-99.0); MEAN PLATELET VOLUME 10.7 fL (9.4-12.3); MONOCYTES ABSOLUTE AUTO 0.44 K/uL (0.00-0.80); MONOCYTES PERCENT AUTO 5.3 % (0.0-8.0); NEUTROPHILS PERCENT AUTO 76.8 % (41.0-71.0); PLATELET COUNT,PLT 310 K/uL (150-400); RED BLOOD CELL COUNT 4.47 M/uL (4.10-5.30); WHITE BLOOD CELL COUNT,WBC 8.33 K/uL (3.9-11.3)
[2023-11-12] MEDS: Formoterol/Mometasone 200-5 MCG 8.8 GM Inhaler INH SCH (06:16)
[2023-11-12] MEDS: Cefepime 2 GM in Sodium Chloride 0.9% 50 ML IV SCH ×2 (06:17→14:44)
[2023-11-12 06:26] LABS: CALCIUM 8.5 mg/dL (8.5-10.1); CARBON DIOXIDE,CO2 24.9 mmol/L (21.0-32.0); EST CRCL DRUG DOSING (CG) 56.53 mL/min; MAGNESIUM 2.1 mg/dL (1.8-2.4); POTASSIUM,K 4.2 mmol/L (3.5-5.1)
[2023-11-12] MEDS: Levothyroxine 25 MCG Tab PO SCH (07:30)
[2023-11-12] MEDS ORDERED: predniSONE 20 MG Tab PO SCH (08:00)
[2023-11-12] MEDS: Losartan 50 MG Tab PO SCH (08:43)
[2023-11-12] MEDS: busPIRone 15 MG Tab PO SCH (08:44)
[2023-11-12] MEDS: Azithromycin 500 MG in Sodium Chloride 0.9% 250 ML IV SCH (08:45)
[2023-11-12] MEDS: Enoxaparin 40 MG/0.4 ML Syringe SUBCUT SCH (08:45)
[2023-11-12] MEDS: Famotidine 20 MG Tab PO SCH (08:46)
[2023-11-12] MEDS: Fluticasone NASAL Spray 16 GM Bottle NASBOTH SCH (08:46)
[2023-11-12] MEDS: Acetaminophen/oxyCODONE 325-5 MG Tab PO PRN (09:11)
[2023-11-12] MEDS ORDERED: Losartan 50 MG Tab PO ONE (13:24)
== END 2023-11-12 16:44 | disposition home or self-care (01) | DRG 193 ==
LOC: MW.ED 18:10 → MW.MS 21:32
PROVIDERS: ADMIT Family Medicine; ATTEND Family Medicine
PROC: 4A033R1 Measurement of Arterial Saturation, Peripheral, Percutaneous Approach (ICD-10-PCS; principal; 2023-11-09)
DX: J18.9 Pneumonia, unspecified organism (principal); J96.21 Acute and chronic respiratory failure with hypoxia; J44.0 Chronic obstructive pulmonary disease with (acute) lower respiratory infection; J45.901 Unspecified asthma with (acute) exacerbation; R09.02 Hypoxemia; K59.09 Other constipation; K21.9 Gastro-esophageal reflux disease without esophagitis; M54.9 Dorsalgia, unspecified; G89.29 Other chronic pain; F41.9 Anxiety disorder, unspecified; F32.A Depression, unspecified; E03.9 Hypothyroidism, unspecified; E87.70 Fluid overload, unspecified; M79.89 Other specified soft tissue disorders; E78.00 Pure hypercholesterolemia, unspecified; G47.33 Obstructive sleep apnea (adult) (pediatric); Z87.891 Personal history of nicotine dependence; Z99.81 Dependence on supplemental oxygen; Z11.52 Encounter for screening for COVID-19; I10 Essential (primary) hypertension; Z88.0 Allergy status to penicillin; Z88.5 Allergy status to narcotic agent; Z88.8 Allergy status to other drugs, medicaments and biological substances; Z79.51 Long term (current) use of inhaled steroids; Z88.6 Allergy status to analgesic agent; Z79.3 Long term (current) use of hormonal contraceptives; Z79.2 Long term (current) use of antibiotics; Z86.73 Personal history of transient ischemic attack (TIA), and cerebral infarction without residual deficits; Z98.49 Cataract extraction status, unspecified eye; Z88.2 Allergy status to sulfonamides; Z98.1 Arthrodesis status; Z98.890 Other specified postprocedural states; Z79.899 Other long term (current) drug therapy; Z90.49 Acquired absence of other specified parts of digestive tract; Z20.822 Contact with and (suspected) exposure to COVID-19
CPT/HCPCS: 0241U; 36415; 71045; 71275; 80048; 80053; 81001; 82803; 83690; 83735; 84100; 84484; 85025; 85379; 87040; 87899; 93005; 94640; 94667; 94668; 96374; 99285; 93010; A9270-GY; J0456; J0692; J1650; J2405; J2920; J2930; J3490; J7030; J7050; J7620-GY; Q9967

== ENCOUNTER 2024-01-20 14:47 | Emergency (ER) | payer MEDICARE, MEDICAID ==
[2024-01-20] MEDS: Albuterol/Ipratropium 3.0-0.5 MG/3 ML Neb Soln ONE (15:40)
[2024-01-20] MEDS: Albuterol 0.083% 2.5 MG/3 ML Neb Soln ONE (15:40)
[2024-01-20] MEDS: Albuterol/Ipratropium 3.0-0.5 MG/3 ML Neb Soln NEB ONE ×3 (15:48)
[2024-01-20] MEDS: amLODIPine 5 MG Tab PO ONE (15:48)
[2024-01-20] MEDS: Sodium Chloride 0.9% 2.5 ML Syringe FLUSH PRN (15:49)
[2024-01-20] MEDS: methylPREDNISolone Sodium Succinate 125 MG/2 ML SDV IVPUSH ONE (15:50)
[2024-01-20] MEDS: Sodium Chloride 0.9% 10 ML Syringe FLUSH PRN (15:50)
[2024-01-20 16:12] LABS: BASOPHILS ABSOLUTE AUTO 0.03 K/uL (0.00-0.20); BASOPHILS PERCENT AUTO 0.4 % (0.0-1.0); EOSINOPHILS ABSOLUTE AUTO 0.41 K/uL (0.00-0.45); HEMATOCRIT 50.4 % (37.0-47.0); HEMOGLOBIN 17.1 g/dL (12.0-16.0); IMMATURE GRAN ABSOLUTE AUTO 0.01 K/uL (0.00-0.05); IMMATURE GRAN PERCENT AUTO 0.1 % (0.0-0.4); LYMPHOCYTES ABSOLUTE AUTO 2.37 K/uL (1.00-4.80); LYMPHOCYTES PERCENT AUTO 29.2 % (24.0-44.0); MEAN CORPUSCULAR HEMOGLOBIN 29.5 pg (28.0-32.0); MEAN CORPUSCULAR HGB CONC 33.9 g/dL (32.0-36.0); MEAN CORPUSCULAR VOLUME 86.9 fL (83.0-99.0); MEAN PLATELET VOLUME 11.2 fL (9.4-12.3); MONOCYTES ABSOLUTE AUTO 0.66 K/uL (0.00-0.80); MONOCYTES PERCENT AUTO 8.1 % (0.0-8.0); NEUTROPHILS ABSOLUTE AUTO 4.65 K/uL (1.80-7.70); NEUTROPHILS PERCENT AUTO 57.2 % (41.0-71.0); WHITE BLOOD CELL COUNT,WBC 8.13 K/uL (3.9-11.3)
[2024-01-20] MEDS: Albuterol 0.083% 2.5 MG/3 ML Neb Soln NEB STA (16:35)
[2024-01-20 16:38] LABS: A/G RATIO 0.8 (0.9-1.6); ALBUMIN 3.9 g/dL (3.4-5.0); BILIRUBIN TOTAL 0.7 mg/dL (0.2-1.0); CALCIUM 10.1 mg/dL (8.5-10.1); CARBON DIOXIDE,CO2 23.9 mmol/L (21.0-32.0); CREATININE 1.1 mg/dL (0.6-1.0); EST CRCL DRUG DOSING (CG) 50.77 mL/min; POTASSIUM,K 3.6 mmol/L (3.5-5.1)
[2024-01-20 16:48] LABS: CORONAVIRUS COVID-19 NAA NEGATIVE (NEGATIVE); INFLUENZA A NAA NEGATIVE (NEGATIVE); INFLUENZA B NAA NEGATIVE (NEGATIVE); PLATELET COUNT,PLT 185; RESPIRATORY SYNCYTIAL VIR NAA NEGATIVE (NEGATIVE)
[2024-01-20] MEDS: Azithromycin 250 MG Tab PO ONE (18:15)
== END 2024-01-20 18:20 | disposition home or self-care (01) ==
LOC: MW.ED 14:47
DX: J44.1 Chronic obstructive pulmonary disease with (acute) exacerbation (principal); I10 Essential (primary) hypertension; K21.9 Gastro-esophageal reflux disease without esophagitis; E03.9 Hypothyroidism, unspecified; Z88.0 Allergy status to penicillin; Z88.2 Allergy status to sulfonamides; Z88.8 Allergy status to other drugs, medicaments and biological substances; Z86.73 Personal history of transient ischemic attack (TIA), and cerebral infarction without residual deficits; Z90.49 Acquired absence of other specified parts of digestive tract; Z79.51 Long term (current) use of inhaled steroids; Z79.899 Other long term (current) drug therapy
CPT/HCPCS: 0241U; 36415; 71045; 80053; 83735; 83880; 84484; 85025; 85379; 93005; 96374; 99285; A9270; J2930; J3490; 93010; 99284; J7620-GY

== ENCOUNTER 2024-03-30 10:50 | Emergency (ER) | payer MEDICARE, MEDICAID ==
[2024-03-30 12:08] LABS: CORONAVIRUS COVID-19 NAA NEGATIVE (NEGATIVE); INFLUENZA A NAA NEGATIVE (NEGATIVE); INFLUENZA B NAA NEGATIVE (NEGATIVE); RESPIRATORY SYNCYTIAL VIR NAA NEGATIVE (NEGATIVE)
== END 2024-03-30 13:23 | disposition home or self-care (01) ==
LOC: MW.ED 10:50
DX: J18.9 Pneumonia, unspecified organism (principal); I10 Essential (primary) hypertension; J44.9 Chronic obstructive pulmonary disease, unspecified; K21.9 Gastro-esophageal reflux disease without esophagitis; E03.9 Hypothyroidism, unspecified; Z88.0 Allergy status to penicillin; Z88.5 Allergy status to narcotic agent; Z88.2 Allergy status to sulfonamides; Z88.8 Allergy status to other drugs, medicaments and biological substances; Z79.890 Hormone replacement therapy; Z79.51 Long term (current) use of inhaled steroids; Z79.899 Other long term (current) drug therapy; Z86.73 Personal history of transient ischemic attack (TIA), and cerebral infarction without residual deficits
CPT/HCPCS: 0241U; 71045; 99283

== ENCOUNTER 2024-07-17 09:52 | Emergency (ER) | payer MEDICARE, MEDICAID ==
[2024-07-17] MEDS: Lidocaine 4% 1 each Patch TOP STA (12:02)
[2024-07-17] MEDS: Ketorolac 30 MG/ML SDV IM ONE (12:03)
[2024-07-17] MEDS: Sodium Chloride 0.9% 1,000 ML IV ONE (13:47)
[2024-07-17 13:55] LABS: BASOPHILS ABSOLUTE AUTO 0.05 K/uL (0.00-0.20); BASOPHILS PERCENT AUTO 0.5 % (0.0-1.0); EOSINOPHILS ABSOLUTE AUTO 0.25 K/uL (0.00-0.45); EOSINOPHILS PERCENT AUTO 2.3 % (0.0-6.0); HEMATOCRIT 42.1 % (37.0-47.0); HEMOGLOBIN 14.5 g/dL (12.0-16.0); IMMATURE GRAN ABSOLUTE AUTO 0.02 K/uL (0.00-0.05); IMMATURE GRAN PERCENT AUTO 0.2 % (0.0-0.4); LYMPHOCYTES PERCENT AUTO 22.4 % (24.0-44.0); MEAN CORPUSCULAR HEMOGLOBIN 30.3 pg (28.0-32.0); MEAN CORPUSCULAR HGB CONC 34.4 g/dL (32.0-36.0); MEAN CORPUSCULAR VOLUME 88.1 fL (83.0-99.0); MEAN PLATELET VOLUME 10.3 fL (9.4-12.3); MONOCYTES ABSOLUTE AUTO 0.99 K/uL (0.00-0.80); MONOCYTES PERCENT AUTO 9.2 % (0.0-8.0); NEUTROPHILS PERCENT AUTO 65.4 % (41.0-71.0); PLATELET COUNT,PLT 266 K/uL (150-400); RED BLOOD CELL COUNT 4.78 M/uL (4.10-5.30); WHITE BLOOD CELL COUNT,WBC 10.71 K/uL (3.9-11.3)
[2024-07-17 14:16] LABS: A/G RATIO 0.7 (0.9-1.6); ALBUMIN 3.1 g/dL (3.4-5.0); BILIRUBIN TOTAL 0.5 mg/dL (0.2-1.0); CALCIUM 9.2 mg/dL (8.5-10.1); CARBON DIOXIDE,CO2 31.8 mmol/L (21.0-32.0); CREATININE 0.9 mg/dL (0.6-1.0); EST CRCL DRUG DOSING (CG) 62.06 mL/min; POTASSIUM,K 3.6 mmol/L (3.5-5.1); PROTEIN TOTAL,TP 7.4 g/dL (6.4-8.2)
[2024-07-17 14:32] LABS: CORONAVIRUS COVID-19 NAA NEGATIVE (NEGATIVE); INFLUENZA A NAA NEGATIVE (NEGATIVE); INFLUENZA B NAA NEGATIVE (NEGATIVE); RESPIRATORY SYNCYTIAL VIR NAA NEGATIVE (NEGATIVE)
== END 2024-07-17 15:15 | disposition home or self-care (01) ==
LOC: MW.ED 09:52
DX: M43.6 Torticollis (principal); I10 Essential (primary) hypertension; J45.909 Unspecified asthma, uncomplicated; K21.9 Gastro-esophageal reflux disease without esophagitis; E03.9 Hypothyroidism, unspecified; Z90.49 Acquired absence of other specified parts of digestive tract; Z79.899 Other long term (current) drug therapy; Z79.890 Hormone replacement therapy; Z79.2 Long term (current) use of antibiotics; Z88.2 Allergy status to sulfonamides; Z88.5 Allergy status to narcotic agent; Z88.0 Allergy status to penicillin; Z88.8 Allergy status to other drugs, medicaments and biological substances; Z75.8 Other problems related to medical facilities and other health care
CPT/HCPCS: 0241U; 36415; 70450; 72125; 80053; 85025; 96372; 99284; A9270; J1885; J3360; J7030; 99283

== ENCOUNTER 2024-07-18 12:10 | Emergency (ER) | payer MEDICARE, MEDICAID ==
[2024-07-18] MEDS: Ketorolac 60 MG/2 ML SDV IM ONE (13:58)
== END 2024-07-18 14:05 | disposition home or self-care (01) ==
LOC: MW.ED 12:10
DX: M54.2 Cervicalgia (principal); I10 Essential (primary) hypertension; J44.9 Chronic obstructive pulmonary disease, unspecified; E03.9 Hypothyroidism, unspecified; Z86.16 Personal history of COVID-19; Z87.891 Personal history of nicotine dependence; Z90.49 Acquired absence of other specified parts of digestive tract; Z79.890 Hormone replacement therapy; Z79.899 Other long term (current) drug therapy; Z88.2 Allergy status to sulfonamides; Z88.5 Allergy status to narcotic agent; Z88.8 Allergy status to other drugs, medicaments and biological substances; Z88.0 Allergy status to penicillin
CPT/HCPCS: 96372; 99283; J1885

== ENCOUNTER 2024-08-29 15:22 | Emergency (ER) | payer MEDICARE, MEDICAID | END 2024-08-29 17:30 | disposition left against medical advice (07) | LOC: MW.ED 15:22 | DX: Z53.21 Procedure and treatment not carried out due to patient leaving prior to being seen by health care provider (principal) ==

== ENCOUNTER 2024-09-11 14:56 | Inpatient (IN) | payer MEDICARE, MEDICAID ==
[2024-09-11 15:49] LABS: BASOPHILS ABSOLUTE AUTO 0.04 K/uL (0.00-0.20); BASOPHILS PERCENT AUTO 0.2 % (0.0-1.0); EOSINOPHILS ABSOLUTE AUTO 0.16 K/uL (0.00-0.45); HEMATOCRIT 43.3 % (37.0-47.0); HEMOGLOBIN 14.7 g/dL (12.0-16.0); IMMATURE GRAN ABSOLUTE AUTO 0.06 K/uL (0.00-0.05); IMMATURE GRAN PERCENT AUTO 0.4 % (0.0-0.4); LYMPHOCYTES PERCENT AUTO 14.7 % (24.0-44.0); MEAN CORPUSCULAR HEMOGLOBIN 29.6 pg (28.0-32.0); MEAN CORPUSCULAR HGB CONC 33.9 g/dL (32.0-36.0); MEAN CORPUSCULAR VOLUME 87.1 fL (83.0-99.0); MEAN PLATELET VOLUME 10.5 fL (9.4-12.3); MONOCYTES ABSOLUTE AUTO 1.45 K/uL (0.00-0.80); MONOCYTES PERCENT AUTO 8.9 % (0.0-8.0); NEUTROPHILS ABSOLUTE AUTO 12.25 K/uL (1.80-7.70); NEUTROPHILS PERCENT AUTO 74.8 % (41.0-71.0); PLATELET COUNT,PLT 284 K/uL (150-400); RED BLOOD CELL COUNT 4.97 M/uL (4.10-5.30); WHITE BLOOD CELL COUNT,WBC 16.36 K/uL (3.9-11.3)
[2024-09-11 16:16] LABS: A/G RATIO 0.7 (0.9-1.6); ALBUMIN 3.1 g/dL (3.4-5.0); BILIRUBIN TOTAL 1.2 mg/dL (0.2-1.0); CALCIUM 9.1 mg/dL (8.5-10.1); CREATININE 0.9 mg/dL (0.6-1.0); EST CRCL DRUG DOSING (CG) 62.06 mL/min; POTASSIUM,K 3.9 mmol/L (3.5-5.1); PROTEIN TOTAL,TP 7.8 g/dL (6.4-8.2)
[2024-09-11] MEDS: Sodium Chloride 0.9% 2.5 ML Syringe FLUSH PRN (16:22)
[2024-09-11] MEDS: Sodium Chloride 0.9% 10 ML Syringe FLUSH PRN (16:22)
[2024-09-11] MEDS: Albuterol/Ipratropium 3.0-0.5 MG/3 ML Neb Soln NEB ONE (16:22)
[2024-09-11] MEDS: cefTRIAXone 1 GM in Sodium Chloride 0.9% 50 ML IV ONE (16:56)
[2024-09-11] MEDS: Azithromycin 500 MG in Sodium Chloride 0.9% 250 ML IV ONE (17:17)
[2024-09-11 17:35] LABS: LACTIC ACID 1.5 mmol/L (0.4-2.0)
[2024-09-11] MEDS: Iopamidol 755 MG/ML 500 ML Multipack Bottle IVPUSH STA (17:50)
[2024-09-11] MEDS: methylPREDNISolone Sodium Succinate 125 MG/2 ML SDV IVPUSH ONE (17:57)
[2024-09-11] MEDS: Morphine 4 MG/ML Syringe IVPUSH ONE (18:32)
[2024-09-11] MEDS: Acetaminophen/HYDROcodone 325-10 MG Tab PO ONE (18:39)
[2024-09-11] MEDS: Ketorolac 30 MG/ML SDV IVPUSH ONE (18:43)
[2024-09-11] MEDS ORDERED: Acetaminophen 325 MG Tab PO PRN (22:46)
[2024-09-12] MEDS ORDERED: Albuterol/Ipratropium 3.0-0.5 MG/3 ML Neb Soln NEB SCH
[2024-09-12] MEDS: Enoxaparin 40 MG/0.4 ML Syringe SUBCUT SCH (01:09)
[2024-09-12] MEDS: Albuterol/Ipratropium 3.0-0.5 MG/3 ML Neb Soln NEB SCH (01:09)
[2024-09-12 07:17] LABS: BASOPHILS ABSOLUTE AUTO 0.01 K/uL (0.00-0.20); BASOPHILS PERCENT AUTO 0.1 % (0.0-1.0); HEMATOCRIT 46.1 % (37.0-47.0); HEMOGLOBIN 14.9 g/dL (12.0-16.0); IMMATURE GRAN ABSOLUTE AUTO 0.04 K/uL (0.00-0.05); IMMATURE GRAN PERCENT AUTO 0.4 % (0.0-0.4); LYMPHOCYTES ABSOLUTE AUTO 1.44 K/uL (1.00-4.80); MEAN CORPUSCULAR HEMOGLOBIN 28.8 pg (28.0-32.0); MEAN CORPUSCULAR HGB CONC 32.3 g/dL (32.0-36.0); MEAN CORPUSCULAR VOLUME 89.2 fL (83.0-99.0); MEAN PLATELET VOLUME 11.5 fL (9.4-12.3); MONOCYTES ABSOLUTE AUTO 0.09 K/uL (0.00-0.80); MONOCYTES PERCENT AUTO 0.9 % (0.0-8.0); NEUTROPHILS ABSOLUTE AUTO 8.05 K/uL (1.80-7.70); NEUTROPHILS PERCENT AUTO 83.6 % (41.0-71.0); PLATELET COUNT,PLT 214 K/uL (150-400); RED BLOOD CELL COUNT 5.17 M/uL (4.10-5.30); WHITE BLOOD CELL COUNT,WBC 9.63 K/uL (3.9-11.3)
[2024-09-12 07:50] LABS: CALCIUM 9.7 mg/dL (8.5-10.1); CARBON DIOXIDE,CO2 23.6 mmol/L (21.0-32.0); CREATININE 0.9 mg/dL (0.6-1.0); EST CRCL DRUG DOSING (CG) 61.96 mL/min
[2024-09-12] MEDS: valACYclovir 500 MG Tab PO SCH ×2 (10:59→12:04)
[2024-09-12] MEDS: Formoterol/Mometasone 200-5 MCG 8.8 GM Inhaler INH SCH (12:05)
[2024-09-12] MEDS: cefTRIAXone 1 GM in Sodium Chloride 0.9% 50 ML IV SCH (15:02)
[2024-09-12] MEDS: Diazepam 2 MG Tab PO PRN (15:27)
[2024-09-12] MEDS: busPIRone 15 MG Tab PO SCH (16:18)
[2024-09-12] MEDS: Azithromycin 500 MG in Sodium Chloride 0.9% 250 ML IV SCH (16:18)
[2024-09-12] MEDS: Desvenlafaxine Succinate 25 MG TAB.ER PO SCH (16:18)
[2024-09-12] MEDS ORDERED: VORTIOXETINE HYDROBROMIDE 20 MG PO SCH (18:00)
[2024-09-12] MEDS: VORTIOXETINE HYDROBROMIDE 10 MG PO SCH (18:14)
[2024-09-12] MEDS: Montelukast 10 MG Tab PO SCH (20:40)
[2024-09-12] MEDS: predniSONE 20 MG Tab PO ONE (20:40)
[2024-09-12] MEDS: oxyCODONE 5 MG Tab PO PRN (21:43)
[2024-09-13 05:49] LABS: BASOPHILS ABSOLUTE AUTO 0.02 K/uL (0.00-0.20); BASOPHILS PERCENT AUTO 0.1 % (0.0-1.0); HEMATOCRIT 39.3 % (37.0-47.0); HEMOGLOBIN 13.5 g/dL (12.0-16.0); IMMATURE GRAN ABSOLUTE AUTO 0.09 K/uL (0.00-0.05); IMMATURE GRAN PERCENT AUTO 0.5 % (0.0-0.4); LYMPHOCYTES ABSOLUTE AUTO 1.49 K/uL (1.00-4.80); LYMPHOCYTES PERCENT AUTO 7.8 % (24.0-44.0); MEAN CORPUSCULAR HEMOGLOBIN 29.7 pg (28.0-32.0); MEAN CORPUSCULAR HGB CONC 34.4 g/dL (32.0-36.0); MEAN CORPUSCULAR VOLUME 86.4 fL (83.0-99.0); MEAN PLATELET VOLUME 10.6 fL (9.4-12.3); MONOCYTES ABSOLUTE AUTO 0.53 K/uL (0.00-0.80); MONOCYTES PERCENT AUTO 2.8 % (0.0-8.0); NEUTROPHILS ABSOLUTE AUTO 16.93 K/uL (1.80-7.70); NEUTROPHILS PERCENT AUTO 88.8 % (41.0-71.0); PLATELET COUNT,PLT 336 K/uL (150-400); RED BLOOD CELL COUNT 4.55 M/uL (4.10-5.30); WHITE BLOOD CELL COUNT,WBC 19.06 K/uL (3.9-11.3)
[2024-09-13] MEDS: Levothyroxine 50 MCG Tab PO SCH (06:09)
[2024-09-13 06:19] LABS: A/G RATIO 0.6 (0.9-1.6); ALBUMIN 2.7 g/dL (3.4-5.0); BILIRUBIN TOTAL 0.2 mg/dL (0.2-1.0); CALCIUM 9.1 mg/dL (8.5-10.1); CARBON DIOXIDE,CO2 25.8 mmol/L (21.0-32.0); EST CRCL DRUG DOSING (CG) 55.76 mL/min; POTASSIUM,K 4.4 mmol/L (3.5-5.1); PROTEIN TOTAL,TP 7.2 g/dL (6.4-8.2)
[2024-09-13 07:07] LABS: BORDETELLA PARAPERT IS1001 Not Detected (Not Detected)
[2024-09-13] MEDS ORDERED: predniSONE 20 MG Tab PO SCH ×2 (08:00→09:00)
[2024-09-13] MEDS: Azithromycin 250 MG Tab PO SCH (17:49)
[2024-09-13] MEDS: predniSONE 20 MG Tab PO SCH (17:49)
[2024-09-13] MEDS: Bisacodyl 5 MG Tab PO PRN (21:29)
[2024-09-13] MEDS: Melatonin 3 MG Tab PO PRN (21:30)
[2024-09-14 06:29] LABS: BASOPHILS ABSOLUTE AUTO 0.01 K/uL (0.00-0.20); BASOPHILS PERCENT AUTO 0.1 % (0.0-1.0); HEMATOCRIT 40.6 % (37.0-47.0); HEMOGLOBIN 13.5 g/dL (12.0-16.0); IMMATURE GRAN ABSOLUTE AUTO 0.03 K/uL (0.00-0.05); IMMATURE GRAN PERCENT AUTO 0.3 % (0.0-0.4); LYMPHOCYTES ABSOLUTE AUTO 1.95 K/uL (1.00-4.80); LYMPHOCYTES PERCENT AUTO 16.7 % (24.0-44.0); MEAN CORPUSCULAR HGB CONC 33.3 g/dL (32.0-36.0); MEAN CORPUSCULAR VOLUME 87.3 fL (83.0-99.0); MEAN PLATELET VOLUME 11.4 fL (9.4-12.3); MONOCYTES ABSOLUTE AUTO 0.52 K/uL (0.00-0.80); MONOCYTES PERCENT AUTO 4.4 % (0.0-8.0); NEUTROPHILS ABSOLUTE AUTO 9.19 K/uL (1.80-7.70); NEUTROPHILS PERCENT AUTO 78.5 % (41.0-71.0); PLATELET COUNT,PLT 315 K/uL (150-400); RED BLOOD CELL COUNT 4.65 M/uL (4.10-5.30)
[2024-09-14 06:56] LABS: A/G RATIO 0.6 (0.9-1.6); ALBUMIN 2.7 g/dL (3.4-5.0); BILIRUBIN TOTAL 0.3 mg/dL (0.2-1.0); CALCIUM 9.5 mg/dL (8.5-10.1); EST CRCL DRUG DOSING (CG) 55.76 mL/min; POTASSIUM,K 4.2 mmol/L (3.5-5.1)
[2024-09-14] MEDS: Losartan 50 MG Tab PO SCH (08:38)
[2024-09-14] MEDS: amLODIPine 5 MG Tab PO STA (08:39)
[2024-09-14] MEDS: Calcium Carbonate 500 MG Tab.Chew PO ONE (08:40)
[2024-09-14] MEDS ORDERED: cefTRIAXone 1 GM Vial IM ONE (14:30)
[2024-09-14] MEDS ORDERED: cefTRIAXone 1 GM in Sodium Chloride 0.9% 50 ML IV ONE (14:45)
[2024-09-14] MEDS: cefTRIAXone 1 GM in Lidocaine 1% 2.1 ML IM ONE (15:16)
[2024-09-14] MEDS ORDERED: Pantoprazole 40 MG Tab.CR PO SCH (21:00)
== END 2024-09-14 15:42 | disposition home or self-care (01) | DRG 193 ==
LOC: MW.ED 14:56 → MW.MS 20:48
PROVIDERS: ADMIT Internal Medicine; ATTEND Internal Medicine
DX: J18.9 Pneumonia, unspecified organism (principal); J96.01 Acute respiratory failure with hypoxia; J44.9 Chronic obstructive pulmonary disease, unspecified; J44.0 Chronic obstructive pulmonary disease with (acute) lower respiratory infection; J44.1 Chronic obstructive pulmonary disease with (acute) exacerbation; I10 Essential (primary) hypertension; Z79.890 Hormone replacement therapy; G47.30 Sleep apnea, unspecified; K59.09 Other constipation; K21.9 Gastro-esophageal reflux disease without esophagitis; M19.90 Unspecified osteoarthritis, unspecified site; H54.7 Unspecified visual loss; F41.9 Anxiety disorder, unspecified; F32.A Depression, unspecified; E03.9 Hypothyroidism, unspecified; J20.9 Acute bronchitis, unspecified; Z88.5 Allergy status to narcotic agent; Z88.8 Allergy status to other drugs, medicaments and biological substances; Z88.0 Allergy status to penicillin; Z88.2 Allergy status to sulfonamides; Z79.899 Other long term (current) drug therapy; Z79.51 Long term (current) use of inhaled steroids; Z79.2 Long term (current) use of antibiotics; Z79.52 Long term (current) use of systemic steroids; Z86.73 Personal history of transient ischemic attack (TIA), and cerebral infarction without residual deficits; Z98.84 Bariatric surgery status; Z90.49 Acquired absence of other specified parts of digestive tract; Z98.1 Arthrodesis status; Z98.82 Breast implant status; Z98.891 History of uterine scar from previous surgery
CPT/HCPCS: 36415; 71045; 71275; 80053; 83605; 84484 ×2; 85025; 85379; 87040 ×2; 87428 ×2; 93005; 96365; 96366; 96367; 96375; 99285; J0456; J0696; J1885; J2919; J3490 ×2; J7050; Q9967; 80048; 87486; 87581; 87633; 94640; 94667; 94668; A9270-GY; J1650; J7620-GY